=== PATIENT | male | born 1950 | race African-American/Black ===

== ENCOUNTER 2016-03-15 13:12 | Emergency (ER) | payer MEDICARE ==
[2016-03-15 13:23] VITALS: BP 119/76
== END 2016-03-15 13:50 | disposition home or self-care (01) ==
LOC: ER 13:14
DX: J45.909 Unspecified asthma, uncomplicated (principal); J44.9 Chronic obstructive pulmonary disease, unspecified; Z76.0 Encounter for issue of repeat prescription; Z86.73 Personal history of transient ischemic attack (TIA), and cerebral infarction without residual deficits